=== PATIENT | male | born 1980 | race Caucasian/White ===

== ENCOUNTER 2016-09-29 17:53 | Emergency (ER) | payer OTHER ==
--- NOTE | 2016-10-04 16:04 | ER ---
ADMIT: 09/29/2016 RM/LOC: ER [facility] MR#: [id number] [facility] [address] [place] [id number] VICENTE DILLARD [address] [place] [address] Emergency Room Report SEX: M AGE: 36 : 1980 DATE: 09/29/2016 HISTORY OF PRESENT ILLNESS: The patient works for [employer] and walks a lot. Had right knee pain. He heard a pop and unable to straighten his knee. He was turning at the time. This happened 5 hours ago. He has gone to several places and they had asked him to come to the emergency room as they do not think that they are able to help him. He is not specific on what places he has gone to, a [facility] or another emergency room. PAST MEDICAL HISTORY: Essentially negative. PHYSICAL EXAMINATION: VITAL SIGNS: Blood pressure 123/56, heart rate is 75, respirations 16, temp is 97.2, and O2 sats 98%. EXTREMITIES: He says that in the past he had had issues with the same knee where he pops it. He calls it he popped it back in, but on palpation does not seem to be dislocated. However, it is pretty contracted when I was doing my drawer examination. He seems to be pretty apprehensive to the examination as well. There is no swelling around the knee, but there is limited range of motion. GAIT: His gait was not tested due to pain and unable to bear weight. Otherwise, physical examination is negative. IMAGING DATA: No x-rays were done as he did have a trauma and this is not going to show any pathology. He does need to have a more specific test in the form of a CT or an MRI. PLAN: At this time, we are going to treat his pain. He does have an appointment with his primary provider tomorrow. He will receive Percocet for pain control. No driving tonight. Rest, ice, compression, elevation. Avoid constipation by using MiraLax while he takes narcotics. Follow up with your PCP as soon as possible. Dr. Biggs, Ortho, is the Ortho provider. Prescription given for Percocet 5 #10 and a note for work. He will receive knee immobilizer, crutches. Advised to apply ice to the area and return to the ER if symptoms worsen. SANJAY Chaney / Dmitri Samaniego MD / modl JOB #: [id number] CC: Dmitri Samaniego MD, Attending Physician Wally Zavala MD, Family Physician
== END 2016-09-29 19:00 | disposition home or self-care (01) ==
LOC: ER 17:53
DX: S86.911A Strain of unspecified muscle(s) and tendon(s) at lower leg level, right leg, initial encounter (principal); X58.XXXA Exposure to other specified factors, initial encounter